=== PATIENT | female | born 1995 | race Caucasian/White ===

== ENCOUNTER → 2017-07-17 | Day surgery (SDC) | payer OTHER ==
[~2017-07-17] VITALS: Ht 157.5 cm; Wt 65.4 kg
[~2017-07-17] MED LIST: JUNEL FE 1/20 21 TAB PO; ZOFRAN ODT4 MG PO
[2017-07-17 12:02] LABS: ABSOLUTE BASOPHIL COUNT 0 /CUMM (0.0-0.2); ABSOLUTE EOSINOPHIL COUNT 0.5 /CUMM (0.0-0.7); ABSOLUTE GRANULOCYTE CT 3.4 /CUMM (1.4-6.5); ABSOLUTE LYMPH COUNT 1.9 /CUMM (1.2-3.4); ABSOLUTE MONOCYTE COUNT 0.4 /CUMM (0.10-0.60); BASOPHIL % 0.6 % (0.0-2.0); EOSINOPHIL % 8.2 % (0-5); GRANULOCYTE % 54.6 % (42.2-75.2); HEMATOCRIT 40.3 % (37-47); MEAN CORPUSCULAR HGB 29.7 PG (27.0-31.0); MEAN CORPUSCULAR VOLUME 87.3 FL (81.0-99.0); PLATELET COUNT 203 /CUMM (130-400); RBC DISTRIBUTION WIDTH 12.6 % (11.5-14.5); RED BLOOD CELL CT 4.62 /CUMM (4.20-5.40); WHITE BLOOD CELL COUNT 6.1 /CUMM (4.8-10.8)
--- NOTE | 2017-07-17 14:32 | Operative Report ---
Operative/Inv Procedure Report Surgery Date: 07/17/17 Name of Procedure: Suction curretage Pre-Operative Diagnosis: Missed at 8 weeks Post-Operative Diagnosis: Same Estimated Blood Loss: less than 50ml Surgeon/Car Shagger: Jono Byers MD Anesthesia: moderate sedation, block Monitors: Per anesthesiology IV Fluids: 500 cc Implants: NA Urine Output: 80 cc Drains: NA Specimens: Product of conception Cervical culture Urine culture Microbiology: Urine culture Tourniquet: NA Complications: None Condition: Stable Operative Indication: 22 year old female with missed at 8 weeks. Hcg was [address]76 however only yolk sac seen. Patient opted for surgical management vs conservative mgmt. Consent obtained with risks of pain, bleeding, infection, vte, uterine injury, future risks of PTL. All questions answered and ample time for questions given. Operative/Procedure Note Note: Patient taken to OR and prepped in sterile fashion. Time out completed prior to procedure. IV antibiotics given. Flagyl 500 mg given. Placed in dorsal lithotomy position. Bladder catheterized of 80 cc clear urine. Speculum placed in vagina. Cervical cultures taken. Allis applied to anterior lip of cervix 9 cc paracervical block with lidocaine with epinephrine used. Serial dilation with joshi dilators to 21. Easy passed without resistance. 6 mm currette placed and using suction at 70 mm HG the uterine was cleared of . Endometrial echo thin after procedure. No active bleeding from cervix. gross inspction of tissue noted villi and decidua. Methergine 0.2 mg given IM for uterine tonus. Toradol given for pain intraop. Speculum and tenaculum removed. Instrument and lap count correct x 2. Tolerated well and taken out of lithotomy and to Same day area. Postprocedure instructions provided. To start Nuvaring tomorrow for contraception. Pain mgmt strategies reviewed Continue on folic acid daily. Rh positive so no need for rhogam. Findings: Uterus 8 cm Prior to procedure gestational sac seen and after procedure endometrial echo of 5 mm on ultrasound Villi and decidua noted on gross inspection of tissue No cervical nor vulvar lesions Urine cloudy at time of drainage so sent for culture. Discharge Disposition: Same Day Admissions Additional Comments: NA CC: Jono Byers MD
== END ==
LOC: STS 02:48
PROVIDERS: Obstetrics & Gynecology
DX: O02.1 Missed abortion (principal); E28.2 Polycystic ovarian syndrome
CPT/HCPCS: 87070; 87075; 87205; 36415; 87086; 87491; 87591; J1100; J1885; J2210; J2250; J2405